=== PATIENT | female | born 2000 | race Two or more races ===

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

== ENCOUNTER 2022-08-06 03:58 | Emergency (ER) | payer OTHER ==
[~2022-08-06] VITALS: Ht 165.1 cm; Wt 60.8 kg
[~2022-08-06 03:58] MED LIST changes: +ZITHROMAX500 MG PO
== END 2022-08-06 09:46 | disposition home or self-care (01) ==
LOC: EMR PED 03:58 → ER 04:01
DX: O26.891 Other specified pregnancy related conditions, first trimester (principal); R19.7 Diarrhea, unspecified; R10.2 Pelvic and perineal pain; R11.0 Nausea; Z3A.09 9 weeks gestation of pregnancy

== ENCOUNTER 2022-08-22 17:50 | Emergency (ER) | payer OTHER ==
[~2022-08-22] VITALS: Ht 165.1 cm; Wt 61.2 kg
== END 2022-08-22 23:11 | disposition home or self-care (01) ==
LOC: ER 17:50 → EMR PED 17:54
DX: M94.0 Chondrocostal junction syndrome [Tietze] (principal); R09.81 Nasal congestion

== ENCOUNTER 2023-11-01 01:29 | Emergency (ER) | payer OTHER ==
[~2023-11-01] VITALS: Ht 157.5 cm; Wt 54.9 kg
[2023-11-01] MEDS ORDERED: 0.9 % SODIUM CHLORIDE 1,000 ML IV ONE (03:00)
[2023-11-01 03:34] LABS: HEMOGLOBIN 12.7 g/dL (12.0-15.00); MEAN CELL VOLUME 84.3 fL (80.00-100.00); MEAN CORPUSCULAR HEMOGLOBIN 28.3 pg (27.00-32.0); MEAN CORPUSCULAR HGB CONC 33.5 g/dl (32.0-36.0); PLATELET COUNT 375 K/uL (150-450); RED BLOOD COUNT 4.51 M/uL (4.00-6.00); RED CELL DISTRIBUTION WIDTH 15.1 % (11.5-14.5)
[2023-11-01 03:42] LABS: INR 1.03; PARTIAL THROMBOPLASTIN TIME 29.6 SECONDS (22.0-34.0); PROTHROMBIN TIME 10.8 SECONDS (9.0-11.5)
[2023-11-01 03:47] LABS: ALBUMIN 4.2 gm/dL (3.4-5.0); ALKALINE PHOSPHATASE 79 U/L (50-136); ALT/SGPT 19 U/L (12-78); ANION GAP 8 (10.0-20.0); AST/SGOT 24 U/L (15-37); BILIRUBIN TOTAL 0.31 mg/dL (0.3-1.2); BLOOD UREA NITROGEN 12 mg/dL (7-18); BUN CREA RATIO 16 (7.0-25.0); CALCIUM 8.9 mg/dL (8.5-10.1); CARBON DIOXIDE 27 mEq/L (21-32); CHLORIDE 107 mmol/L (98-107); CREATININE SERUM 0.77 mg/dL (0.55-1.02); GFR 94.63; GLOBULINA 3.9 G/DL (2.4-3.5); GLUCOSE FASTING 90 mg/dL (65-100); OSMOLALITY SERUM 275 MOSM/KG (275-295); POTASSIUM 3.65 mEq/L (3.5-5.1); SODIUM 138 mmol/L (136-145); TOTAL PROTEIN 8.1 gm/dL (6.4-8.2)
[2023-11-01 04:13] LABS: HCG QUANTITATIVE < 1 mUI/mL (1-3)
[2023-11-01 07:16] LABS: PH,URINE 5.5 (5.0-8.0); URINE APPEARANCE Cloudy; URINE BILIRRUBIN Negative (NEGATIVE); URINE BLOOD Large; URINE COLOR Dark Yellow; URINE GLUCOSE Negative (NEGATIVE); URINE LEUKOCYTE Moderate; URINE NITRATE Negative
[2023-11-01 07:17] LABS: URINE EPITHELIAL CELLS 44.3 uL (0.0-38.8); URINE RBC 33.1 uL (0.0-20.8); URINE WBC 515.4 uL (0.0-23.2)
[2023-11-01 07:22] LABS: URINE BACTERIA > 9821.5 uL (0.0-1933)
[2023-11-01 07:23] LABS: URINE PROTEIN 100 (NEGATIVE)
[2023-11-01] MEDS ORDERED: CEPHALEXIN500 MG PO (08:14)
[2023-11-01] MEDS ORDERED: CEFTRIAXONE SODIUM 1,000 MG VIAL IV STA (08:20)
== END 2023-11-01 08:33 ==
LOC: ER 01:29
PROVIDERS: General Practice
DX: N39.0 Urinary tract infection, site not specified (principal); R42 Dizziness and giddiness; D64.9 Anemia, unspecified

== ENCOUNTER 2024-09-08 15:44 | Emergency (ER) | payer OTHER ==
[~2024-09-08] VITALS: Ht 160 cm; Wt 60.8 kg
[~2024-09-08 15:44] MED LIST changes: +CEPHALEXIN500 MG PO
[2024-09-08] MEDS ORDERED: 0.9 % SODIUM CHLORIDE 1,000 ML IV STA (16:39)
[2024-09-08 17:31] LABS: HEMATOCRIT 36.9 % (36.0-45.00); HEMOGLOBIN 12.4 g/dL (12.0-15.00); MEAN CELL VOLUME 85.8 fL (80.00-100.00); MEAN CORPUSCULAR HEMOGLOBIN 28.9 pg (27.00-32.0); MEAN CORPUSCULAR HGB CONC 33.7 g/dl (32.0-36.0); PLATELET COUNT 388 K/uL (150-450); RED CELL DISTRIBUTION WIDTH 14.9 % (11.5-14.5)
[2024-09-08 17:44] LABS: CALCIUM 9.4 mg/dL (8.5-10.1); CREATININE SERUM 0.58 mg/dL (0.55-1.02); POTASSIUM 3.73 mEq/L (3.5-5.1)
[2024-09-08 19:57] LABS: PH,URINE 5.5 (5.0-8.0); URINE APPEARANCE Clear; URINE BILIRRUBIN Negative (NEGATIVE); URINE BLOOD Negative; URINE COLOR Yellow; URINE GLUCOSE Negative (NEGATIVE); URINE KETONE Trace (NEGATIVE); URINE LEUKOCYTE Negative; URINE NITRATE Negative; URINE PROTEIN Negative (NEGATIVE); URINE UROBILINOGEN 0.2 E.U./dl
[2024-09-08 20:05] LABS: URINE EPITHELIAL CELLS 13.9 uL (0.0-38.8); URINE RBC 24.8 uL (0.0-20.8); URINE WBC 7.5 uL (0.0-23.2)
[2024-09-08 20:07] LABS: URINE BACTERIA > 9821.5 uL (0.0-1933); URINE CAST 0.58 uL (0.0-1.40)
== END 2024-09-08 22:07 | disposition home or self-care (01) ==
LOC: ER 15:47
PROVIDERS: Emergency Medicine
DX: O23.40 Unspecified infection of urinary tract in pregnancy, unspecified trimester (principal)

== ENCOUNTER 2024-10-03 20:14 | Emergency (ER) | payer OTHER ==
[~2024-10-03] VITALS: Ht 152.4 cm; Wt 63.5 kg
[2024-10-03 20:18] VITALS: BP 107/74; O2SAT 100
[2024-10-03] MEDS ORDERED: FAMOTIDINE/PF 20 MG in 0.9 % SODIUM CHLORIDE 8 ML IV PUSH STA (20:33)
[2024-10-03] MEDS ORDERED: DIPHENOXYLATE HCL/ATROPINE 1 UDTAB TABLET PO ONE (20:45)
[2024-10-03] MEDS ORDERED: 0.9 % SODIUM CHLORIDE 1,000 ML IV SCH (20:45)
[2024-10-03] MEDS ORDERED: ONDANSETRON HCL 2 MG/ML VIAL IV ONE (20:45)
[2024-10-03] MEDS ORDERED: FAMOTIDINE/PF 20 MG/2 ML VIAL ONE (20:54)
[2024-10-03] MEDS ORDERED: ONDANSETRON HCL 2 MG/ML VIAL ONE (20:54)
[2024-10-03 20:55] LABS: HEMATOCRIT 38.8 % (36.0-45.00); HEMOGLOBIN 13.2 g/dL (12.0-15.00); MEAN CELL VOLUME 85.8 fL (80.00-100.00); MEAN CORPUSCULAR HEMOGLOBIN 29.2 pg (27.00-32.0); MEAN CORPUSCULAR HGB CONC 34.1 g/dl (32.0-36.0); PLATELET COUNT 388 K/uL (150-450); RED BLOOD COUNT 4.52 M/uL (4.00-6.00); RED CELL DISTRIBUTION WIDTH 14.1 % (11.5-14.5)
[2024-10-03 21:19] LABS: ALBUMIN 3.9 gm/dL (3.4-5.0); BILIRUBIN TOTAL 0.68 mg/dL (0.3-1.2); CALCIUM 9.3 mg/dL (8.5-10.1); CREATININE SERUM 0.63 mg/dL (0.55-1.02); GFR 118.16; POTASSIUM 3.48 mEq/L (3.5-5.1); TOTAL PROTEIN 7.9 gm/dL (6.4-8.2)
[2024-10-03] MEDS ORDERED: ONDANSETRON ODT8 MG PO (22:07)
[2024-10-03] MEDS ORDERED: PEPCID AC20 MG PO (22:07)
[2024-10-03] MEDS ORDERED: METOCLOPRAMIDE HCL 5 MG/ML VIAL ONE (22:38)
[2024-10-03] MEDS ORDERED: METOCLOPRAMIDE HCL 10 MG in DEXTROSE 5 % IN WATER 50 ML IV ONE (22:45)
== END 2024-10-03 22:12 | disposition home or self-care (01) ==
LOC: ER 20:17
PROVIDERS: General Practice
DX: K52.89 Other specified noninfective gastroenteritis and colitis (principal); R11.2 Nausea with vomiting, unspecified; Z20.822 Contact with and (suspected) exposure to COVID-19
CPT/HCPCS: 36415; 96365; 96366; 99282; J2405; J2765; J3490; J7030

== ENCOUNTER 2024-12-19 00:56 | Emergency (ER) | payer OTHER ==
[~2024-12-19] VITALS: Ht 167.6 cm; Wt 54.4 kg
[~2024-12-19 00:56] MED LIST changes: +ONDANSETRON ODT8 MG PO; +PEPCID AC20 MG PO
[2024-12-19] MEDS ORDERED: ORPHENADRINE CITRATE 30 MG/ML AMPUL IM STA (03:59)
[2024-12-19] MEDS ORDERED: KETOROLAC TROMETHAMINE 60 MG VIAL IM STA (03:59)
[2024-12-19] MEDS ORDERED: KETOROLAC TROMETHAMINE 60 MG VIAL IM ONE (04:03)
[2024-12-19] MEDS ORDERED: ORPHENADRINE CITRATE 30 MG/ML AMPUL ONE (04:03)
[2024-12-19] MEDS ORDERED: NORFLEX100MG PO (04:28)
[2024-12-19] MEDS ORDERED: KETO10TA2 PO (04:28)
== END 2024-12-19 04:55 | disposition home or self-care (01) ==
LOC: ER 00:57
DX: M54.50 Low back pain, unspecified (principal)
CPT/HCPCS: 72100; 96372; 99283; J1885; J2360

== ENCOUNTER 2024-12-21 18:14 | Emergency (ER) | payer OTHER ==
[~2024-12-21] VITALS: Ht 160 cm; Wt 57.2 kg
[~2024-12-21 18:14] MED LIST changes: +KETO10TA2 PO; +NORFLEX100MG PO
[2024-12-21] MEDS ORDERED: KETOROLAC TROMETHAMINE 30 MG VIAL IM ONE (18:45)
[2024-12-21] MEDS ORDERED: ORPHENADRINE CITRATE 30 MG/ML AMPUL IM ONE (18:45)
[2024-12-21] MEDS ORDERED: KETOROLAC TROMETHAMINE 30 MG VIAL ONE (18:46)
[2024-12-21] MEDS ORDERED: ORPHENADRINE CITRATE 30 MG/ML AMPUL ONE (18:46)
== END 2024-12-21 20:06 | disposition home or self-care (01) ==
LOC: ER 18:14
DX: M54.89 Other dorsalgia (principal)

== ENCOUNTER 2025-02-11 18:27 | Emergency (ER) | payer OTHER ==
[~2025-02-11] VITALS: Ht 160 cm; Wt 63.5 kg
== END 2025-02-11 23:59 | disposition home or self-care (01) ==
LOC: ER 18:27
DX: O46.93 Antepartum hemorrhage, unspecified, third trimester (principal); Z3A.29 29 weeks gestation of pregnancy

== ENCOUNTER 2025-02-22 02:43 | Outpatient (CLI) | payer OTHER ==
[~2025-02-22] VITALS: Ht 157.5 cm; Wt 63.5 kg
[2025-02-22 02:09] VITALS: BP 122/80
[2025-02-22] MEDS ORDERED: PRENATAL TABLE1 EAC1 PO (02:49)
[2025-02-22] MEDS ORDERED: TERBUTALINE SULFATE 1 MG/ML AMPUL SUBCUTANEO SCH (03:30)
[2025-02-22] MEDS ORDERED: RINGERS SOLUTION,LACTATED 1,000 ML IV SCH (03:30)
[2025-02-22 03:40] LABS: URINE APPEARANCE Cloudy; URINE BILIRRUBIN Negative (NEGATIVE); URINE BLOOD Negative; URINE COLOR Yellow; URINE GLUCOSE Negative (NEGATIVE); URINE KETONE Negative (NEGATIVE); URINE LEUKOCYTE Large; URINE NITRATE Negative; URINE PROTEIN 30 (NEGATIVE); URINE UROBILINOGEN 1.0 E.U./dl
[2025-02-22 03:44] LABS: URINE EPITHELIAL CELLS 86.6 uL (0.0-38.8); URINE RBC 6.5 uL (0.0-20.8); URINE WBC 1668.5 uL (0.0-23.2)
[2025-02-22 03:56] LABS: BASO % 0.4 % (0.1-1.2); EOS # 0.13 (0.04-0.54); EOS % 1.2 % (0.7-7.0); LYMPH # 2.72 (1.18-3.74); LYMPH % 25.0 % (19.3-53.1); MEAN PLATELET VOLUME 8.80 fl (9.4-12.4); MONO # 0.99 (0.24-0.82); MONO % 9.1 % (4.7-12.5); NEUT # 6.97 (1.56-6.13); NEUT % 64.0 % (34.0-71.1); RED CELL DISTRIBUTION WIDTH 13.2 % (11.6-14.4)
[2025-02-22 03:58] LABS: URINE BACTERIA > 9821.5 uL (0.0-1933); URINE CAST 1.02 uL (0.0-1.40)
[2025-02-22] MEDS ORDERED: CEFAZOLIN SODIUM 1,000 MG VIAL IV SCH (06:15)
[2025-02-22 07:21] VITALS: BP 103/70
[2025-02-22 12:21] VITALS: BP 103/67
[2025-02-22 13:52] VITALS: BP 110/68
== END 2025-02-22 18:54 | disposition home or self-care (01) ==
LOC: OBS/DEL 02:43
PROVIDERS: ATTEND Obstetrics & Gynecology
DX: O26.893 Other specified pregnancy related conditions, third trimester (principal); R10.2 Pelvic and perineal pain; Z3A.30 30 weeks gestation of pregnancy